=== PATIENT | male | born 2000 | race Hispanic/Latino ===

== ENCOUNTER 2018-11-02 13:22 | Emergency (ER) | payer OTHER ==
[2018-11-02 13:39] VITALS: BP 126/63
--- NOTE | 2018-11-02 14:20 | REP ---
Clinical: Trauma . Comparison: None . Findings: The ventricles, sulci, and cisterns are normal in position and appearance. Contreras-white differentiation is maintained. No acute intracranial hemorrhage, mass/mass effect, pathology or trauma/injury. No evidence for acute infarction. No extra-axial fluid collection. Calvarium is intact. Paranasal sinuses and mastoid air cells are clear. Impression: Normal noncontrast head CT. No evidence for acute intracranial pathology or trauma/injury. Electronically Signed by Andreas Martinez MD 11/02/2018 02:12 P
--- NOTE | 2018-11-02 14:24 | REP ---
Clinical: Trauma . Technique: Axial noncontrast images from the skull base to the thoracic inlet with coronal and sagittal re-formations Findings: Normal alignment and lordosis is maintained. Cervical vertebral bodies including transverse processes and spinous processes are intact and there is no evidence for acute fracture / compression injury or subluxation. Spinal canal is patent. Posterior elements are intact. Paravertebral soft tissues are normal. Incidental small left cervical rib is noted - normal variant. Impression: Normal noncontrast cervical spine CT. No evidence for acute pathology or trauma/injury. Electronically Signed by Andreas Martinez MD 11/02/2018 02:16 P
[2018-11-02] MEDS ORDERED: ACETAMINOPHEN 325 MG TAB PO ONE (14:30)
[2018-11-02] MEDS ORDERED: IBUPROFEN 800 MG TAB PO ONE (14:30)
[2018-11-02 14:58] VITALS: O2SAT 100
== END 2018-11-02 15:36 | disposition home or self-care (01) ==
LOC: M ED 13:22
DX: S09.90XA Unspecified injury of head, initial encounter (principal); S16.1XXA Strain of muscle, fascia and tendon at neck level, initial encounter; V49.49XA Driver injured in collision with other motor vehicles in traffic accident, initial encounter; Y92.410 Unspecified street and highway as the place of occurrence of the external cause

== ENCOUNTER 2019-02-18 21:20 | Emergency (ER) | payer OTHER ==
[~2019-02-18] VITALS: Ht 182.9 cm; Wt 90.0 kg
[2019-02-19 00:05] VITALS: BP 111/56
--- NOTE | 2019-02-19 08:06 | REP ---
Bilateral ribs four views: There is no rib fracture or other rib abnormality. PA chest: There is no pneumothorax, hemothorax or pulmonary contusion. The lung ward are clear. The cardiac size is normal. The lilo, mediastinum, and skeletal structures are unremarkable. Impression: Negative PA chest. Electronically Signed by Angel Ansari MD 02/19/2019 07:58 A
== END 2019-02-19 00:16 | disposition home or self-care (01) ==
LOC: M ED 21:20
DX: S20.211A Contusion of right front wall of thorax, initial encounter (principal); S20.212A Contusion of left front wall of thorax, initial encounter; X58.XXXA Exposure to other specified factors, initial encounter; Y92.89 Other specified places as the place of occurrence of the external cause

== ENCOUNTER 2019-03-03 18:04 | Emergency (ER) | payer OTHER ==
[~2019-03-03] VITALS: Ht 182.9 cm; Wt 85.7 kg
[2019-03-03] MEDS ORDERED: NS 1,000 ML IV ONE ×2 (18:15→20:15)
[2019-03-03] MEDS ORDERED: OXYC1TAB23 PO (18:22)
[2019-03-03 18:24] LABS: BASO # 0.1 10^3/uL (0.0-0.2); BASO % 0.8 % (0.0-1.0); EOS # 0.2 10^3/uL (0.0-0.50); EOS % 2.3 % (0.0-3.0); HEMOGLOBIN 17.1 g/dl (13.5-17.5); LYMPH # 3.9 10^3/uL (1.5-6.5); MEAN CORPUSCULAR HEMOGLOBIN 28.7 pg (27.0-33.0); MEAN CORPUSCULAR HGB CONC 34.9 g/dl (32.0-36.5); MEAN CORPUSCULAR VOLUME 82.2 fl (80.0-96.0); MONO # 0.8 10^3/uL (0.0-0.8); MONO % 8.1 % (0.0-5.0); NEUTROPHILS # 4.7 10^3/uL (1.8-7.7); NEUTROPHILS % 48.7 % (36.0-66.0); PLATELET COUNT, AUTOMATED 347 10^3/uL (150-450); RED BLOOD COUNT 5.96 10^6/uL (4.30-6.10); WHITE BLOOD COUNT 9.7 10^3/uL (4.0-10.0)
[2019-03-03 18:25] LABS: VENOUS BASE EXCESS -2.4 (-2.0-2.0); VENOUS HCO3 23.4 MEQ/L (23.0-27.0); VENOUS O2 SATURATION 93.1 % (60.0-80.0); VENOUS PARTIAL PRESSURE CO2 43.7 mmHg (38.0-50.0); VENOUS PARTIAL PRESSURE O2 69.5 mmHg (30.0-50.0); VENOUS PH 7.347 UNITS (7.330-7.430); VENOUS STANDARD HCO3 22.4 MEQ/L; VENOUS TOTAL CO2 24.8 MEQ/L (24.0-28.0)
[2019-03-03 18:55] LABS: ACETAMINOPHEN LEVEL 8.5 UG/ML (10.0-30.0); ALBUMIN 4.1 GM/DL (3.2-5.2); ALT/SGPT 24 U/L (12-78); BILIRUBIN,DIRECT 0.1 MG/DL (0.0-0.2); BILIRUBIN,TOTAL 0.5 MG/DL (0.2-1.0); BLOOD UREA NITROGEN 10 MG/DL (7-18); CALCIUM LEVEL 8.7 MG/DL (8.5-10.1); CARBON DIOXIDE LEVEL 27 MEQ/L (21-32); CHLORIDE LEVEL 105 MEQ/L (98-107); CPK CREATINE PHOSPHOKINASE 201 U/L (39-308); CREATININE FOR GFR 1.01 MG/DL (0.70-1.30); ETHYL ALCOHOL (ETHANOL) < 0.003 % (0.000-0.010); GLUCOSE, FASTING 93 MG/DL (70-100); POTASSIUM SERUM 3.8 MEQ/L (3.5-5.1); SALICYLATE LEVEL < 1.7 MG/DL (5.0-30.0); SODIUM LEVEL 140 MEQ/L (136-145); TOTAL PROTEIN 7.9 GM/DL (6.4-8.2)
--- NOTE | 2019-03-03 19:42 | REP ---
Bilateral hand 06/13 views History: Trauma Right hand There is no acute fracture or dislocation. The joint spaces are normal in appearance. Impression: There is no acute fracture or dislocation. Left hand There is no acute fracture or dislocation. The joint spaces are normal in appearance. Impression: There is no acute fracture or dislocation. Electronically Signed by Raúl Fernandez MD 03/03/2019 07:33 P
[2019-03-03 21:31] LABS: AMPHETAMINES LEVEL URINE NEGATIVE (NEGATIVE); BARBITURATES URINE NEGATIVE (NEGATIVE); BENZODIAZEPINES URINE NEGATIVE (NEGATIVE); CANNABINOIDS URINE NEGATIVE (NEGATIVE); COCAINE METABOLITE URINE NEGATIVE (NEGATIVE); METHADONE URINE NEGATIVE (NEGATIVE); OPIATES URINE POSITIVE (NEGATIVE); PHENCYCLIDINE URINE NEGATIVE (NEGATIVE)
[2019-03-04 01:30] VITALS: BP 104/56
--- NOTE | 2019-03-04 14:34 | ECGEPIP ---
Stationary ECG Study [facility] - ED Test Date: 2019-03-03 Pat Name: JACKI JACKSON Department: Room: - Gender: M [employer]aste Plant Supervisor: TC : 2000 Requested By: Ermelinda Ontiveros Order Number: [id number] Reading MD: Rico Madrid Measurements Intervals [place] Rate: 57 P: 59 NC: 137 QRS: 77 QRSD: 101 T: 5 QT: 395 QTc: 386 Interpretive Statements SINUS BRADYCARDIA Comparison tracing not on file Electronically Signed On 03-04-2019 14:34:05 EDT by Rico Madrid
--- NOTE | 2019-03-04 14:47 | ECGEPIP ---
Stationary ECG Study [facility] - ED Test Date: 2019-03-04 Pat Name: JACKI JACKSON Department: Room: - Gender: M Backend Java Developer: brad : 2000 Requested By: Ermelinda Ontiveros Order Number: [id number] Reading MD: Rico Madrid Measurements Intervals [place] Rate: 50 P: 55 UT: 145 QRS: 62 QRSD: 112 T: 12 QT: 418 QTc: 384 Interpretive Statements SINUS BRADYCARDIA Similar to tracing done 03-03-19 Electronically Signed On 03-04-2019 14:46:59 EDT by Rico Madrid
== END 2019-03-04 01:53 | disposition home or self-care (01) ==
LOC: M ED 18:04
DX: F11.10 Opioid abuse, uncomplicated (principal)
CPT/HCPCS: 36415; 73130; 80048; 80076; 80307; 82550; 82803; 84443; 85025; 93005; 93041; 96360; 96361; 99285; G0480

== ENCOUNTER 2019-07-03 01:09 | Emergency (ER) | payer OTHER ==
[~2019-07-03] VITALS: Ht 182.9 cm; Wt 90.0 kg
[~2019-07-03 01:09] MED LIST: OXYC1TAB23 PO
[2019-07-03 01:10] VITALS: BP 124/77
[2019-07-03] MEDS ORDERED: PSEUDOEPHEDRINE 30 MG TAB PO STA (02:09)
[2019-07-03] MEDS ORDERED: IBUP-1022 PO (02:13)
[2019-07-03] MEDS ORDERED: FLON1SPR NARES (02:13)
[2019-07-03] MEDS ORDERED: BENA25CA4 PO (02:13)
[2019-07-03] MEDS ORDERED: PSEU120T19 PO (02:13)
[2019-07-03] MEDS ORDERED: IBUPROFEN 600 MG TAB PO ONE (02:15)
[2019-07-03] MEDS ORDERED: diphenhydrAMINE 50 MG CAP PO ONE (02:15)
== END 2019-07-03 02:43 | disposition home or self-care (01) ==
LOC: M ED 01:09
DX: R09.81 Nasal congestion (principal)

== ENCOUNTER 2019-10-12 11:08 | Emergency (ER) | payer OTHER ==
[~2019-10-12] VITALS: Ht 182.9 cm; Wt 93.2 kg
[2019-10-12 11:08] VITALS: BP 109/54
[~2019-10-12 11:08] MED LIST changes: +BENA25CA4 PO; +FLON1SPR NARES; +IBUP-1022 PO; +PSEU120T19 PO
[2019-10-12] MEDS ORDERED: KETOROLAC TROMETHAMINE 10 MG TAB PO ONE (12:45)
[2019-10-12] MEDS ORDERED: ACETAMINOPHEN 325 MG TAB PO ONE (12:45)
[2019-10-12] MEDS ORDERED: NEOSPORIN TOP OINT 15GM TOP ONE (12:45)
--- NOTE | 2019-10-12 13:33 | REP ---
RIGHT HAND COMPLETE: 10/12/2019. CLINICAL HISTORY: Trauma. COMPARISON: Right wrist today, hand 03/03/2019. FINDINGS: Four views are provided. There is some soft tissue swelling of the dorsal aspect of the hand at the MCP joints on the lateral view. I do not see fracture of the distal radius or ulna, carpal bones, metacarpals on an acute basis nor any fracture of the phalanges. The MCP and IP joints are grossly intact. IMPRESSION: 1. Soft tissue swelling dorsal aspect of the hand at the level of the MCP joints without visible or displaced fracture, avulsion, or other acute bony finding. Electronically Signed by Caden Snow MD 10/12/2019 07:55 P
--- NOTE | 2019-10-12 13:34 | REP ---
RIGHT WRIST COMPLETE: 10/12/2019. COMPARISON: Right hand 10/12/2019, 03/03/2019. CLINICAL HISTORY: Trauma. FINDINGS: Four views show distal radius and ulna intact. Carpal bones and their joint spaces were unremarkable. The proximal metacarpals were intact. On the lateral view, there is questionable mild swelling over the dorsal aspect of the wrist, but no other significant finding. IMPRESSION: 1. Negative right wrist series for fracture or other acute bony finding. Electronically Signed by Caden Snow MD 10/12/2019 07:56 P
== END 2019-10-12 12:55 | disposition home or self-care (01) ==
LOC: M ED 11:08
DX: S63.521A Sprain of radiocarpal joint of right wrist, initial encounter (principal); S60.221A Contusion of right hand, initial encounter; W22.09XA Striking against other stationary object, initial encounter; Y92.099 Unspecified place in other non-institutional residence as the place of occurrence of the external cause; Y93.89 Activity, other specified; Y99.9 Unspecified external cause status

== ENCOUNTER 2020-05-18 18:33 | Emergency (ER) | payer OTHER ==
[~2020-05-18] VITALS: Ht 182.9 cm; Wt 97.1 kg
[2020-05-18 18:33] VITALS: BP 134/67
[2020-05-18] MEDS ORDERED: LIDOCAINE 1% SDV 5ML VIAL DILUENT ONE (20:15)
[2020-05-18] MEDS ORDERED: cefTRIAXone SOD 250MG VIAL (J0696 PER 250MG) IM ONE (20:15)
[2020-05-18] MEDS ORDERED: AZITHROMYCIN 250MG TABLET PO ONE (20:15)
[2020-05-18 21:19] LABS: CHLAMYDIA DNA AMPLIFICATION NEGATIVE (NEGATIVE); GC DNA AMPLIFICATION POSITIVE (NEGATIVE)
== END 2020-05-18 20:45 | disposition home or self-care (01) ==
LOC: M ED 18:33
DX: Z20.2 Contact with and (suspected) exposure to infections with a predominantly sexual mode of transmission (principal)
CPT/HCPCS: 87491; 87591; 96372; 99283; J0696

== ENCOUNTER 2020-06-02 21:11 | Emergency (ER) | payer OTHER | END 2020-06-02 22:38 | disposition home or self-care (01) | LOC: M ED 21:11 | DX: S90.112A Contusion of left great toe without damage to nail, initial encounter (principal); W20.8XXA Other cause of strike by thrown, projected or falling object, initial encounter; Y92.9 Unspecified place or not applicable; Y93.9 Activity, unspecified; Y99.9 Unspecified external cause status ==

== ENCOUNTER 2020-07-16 06:36 | Emergency (ER) | payer OTHER ==
[~2020-07-16] VITALS: Ht 182.9 cm; Wt 97.7 kg
[2020-07-16] MEDS ORDERED: PSEU-52 PO (06:44)
[2020-07-16 07:48] LABS: BASO % 1.3 % (0.0-1.0); EOS # 0.7 10^3/uL (0.0-0.5); EOS % 11.6 % (0.0-3.0); HEMATOCRIT 46.6 % (42.0-52.0); LYMPH # 2.2 10^3/uL (1.5-5.0); MEAN CORPUSCULAR HEMOGLOBIN 28.9 pg (27.0-33.0); MEAN CORPUSCULAR HGB CONC 34.3 g/dl (32.0-36.5); MEAN CORPUSCULAR VOLUME 84.1 fl (80.0-96.0); MONO # 0.7 10^3/uL (0.0-0.8); MONO % 10.9 % (0.0-5.0); NEUTROPHILS # 2.5 10^3/uL (1.5-8.5); PLATELET COUNT, AUTOMATED 259 10^3/uL (150-450); RED BLOOD COUNT 5.54 10^6/uL (4.30-6.10); WHITE BLOOD COUNT 6.1 10^3/uL (4.0-10.0)
[2020-07-16 07:49] LABS: BASO # 0.1 10^3/uL (0.0-0.2)
[2020-07-16 08:11] LABS: BLOOD UREA NITROGEN 9 MG/DL (7-18); CARBON DIOXIDE LEVEL 30 MEQ/L (21-32); CHLORIDE LEVEL 105 MEQ/L (98-107); CK-MB VALUE MASS 2.9 NG/ML (<3.6); CPK CREATINE PHOSPHOKINASE 484 U/L (39-308); CREATININE FOR GFR 0.89 MG/DL (0.70-1.30); GLOMERULAR FILTRATION RATE > 60.0 (>60); GLUCOSE, FASTING 82 MG/DL (70-100); POTASSIUM SERUM 3.5 MEQ/L (3.5-5.1); SODIUM LEVEL 139 MEQ/L (136-145); TROPONIN I < 0.02 NG/ML (< 0.10)
--- NOTE | 2020-07-16 08:57 | REPVR ---
PROCEDURE INFORMATION: Exam: XR Chest, 1 View Exam date and time: 07/16/20 (8:46am) Age: 19 years old Clinical indication: Chest pain TECHNIQUE: Imaging protocol: Portable CXR Views: 1 view COMPARISON: Rib plain films and CXR of 02/18/19 FINDINGS: Comparison is made with a frontal CXR done on 02/18/19. Mild cardiomegaly is likely (stable appearance). No focal infiltrates and no pleural effusions. No gross cardiac failure. IMPRESSION: No acute chest pathology. A similar appearance was noted in February 2019. Electronically signed by: Allie Durand On 07/16/2020 08:56:21 AM
[2020-07-16] MEDS ORDERED: HM S0.65 NARES (10:43)
[2020-07-16] MEDS ORDERED: FLON1SPR NARES (10:43)
[2020-07-16] MEDS ORDERED: CLAR10CA3 PO (10:44)
[2020-07-16] MEDS ORDERED: IBUPROFEN 800 MG TAB PO ONE (11:00)
[2020-07-16 11:09] VITALS: BP 129/76
--- NOTE | 2020-07-22 15:42 | ECGEPIP ---
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
== END 2020-07-16 11:36 | disposition home or self-care (01) ==
LOC: M ED 06:36
DX: R07.89 Other chest pain (principal); R09.81 Nasal congestion; J30.9 Allergic rhinitis, unspecified; J06.9 Acute upper respiratory infection, unspecified; B34.9 Viral infection, unspecified; J30.89 Other allergic rhinitis; Z79.899 Other long term (current) drug therapy